=== PATIENT | female | born 2000 | race Caucasian/White ===

== ENCOUNTER 2022-06-19 06:45 | Emergency (ER) | payer OTHER, SELFPAY ==
[2022-06-19 06:47] VITALS: BP 122/84; PULSE 82; RESP 16; TEMP 36.9; O2SAT 98
--- NOTE | 2022-06-19 06:58 | ED.PSYCH ---
HPI - Psych <Sohan Balderas DO - Last Filed: 06/21/22 08:01> General Chief Complaint: Psychiatric Symptoms Stated Complaint: Suicidal ideations Time Seen by Provider: 06/19/22 06:52 Source: EMS Mode of arrival: EMS History of Present Illness HPI Narrative: 21-year-old female nonsmoker with history of anxiety and depression presents by EMS with suicidal ideation. She is very tearful and upset and a poor historian but states that she thinks she has figured it out and she wanted to kill herself but does not think she wants to anymore. She is tearful and staring off stating that she broke all the rules but is unclear what this means. She states that she lives in [facility] but left there because it was raining too much. She states she has friends and family here but does not live with them. She states that both of her parents killed themselves during her and at the same time were sending her messages to kill herself. She states she is not been eating or drinking. She denies any homicidal ideation. She denies any recent trauma or injury. She denies any use of alcohol or street drugs. Related Data Previous Rx's Medication Instructions Recorded sertraline 150 mg capsule 150 mg PO DAILY #90 caps 05/12/22 Allergies Allergy/AdvReac Type Severity Reaction Status Date / Time No Known Drug Allergies Allergy Unverified 05/12/22 14:42 Review of Systems <DO Debra Mcbride Last Filed: 06/21/22 08:01> Review of Systems Narrative: GENERAL: Denies chills, fatigue, malaise, fever, sweats. HEENT: Denies sinus pain, ear pain, sore throat, difficulty swallowing, dizziness. RESPIRATORY: Denies dyspnea, cough, wheezing, hemoptysis, sputum. CARDIOVASCULAR: Denies chest pain, palpitations, orthopnea, edema, GASTROINTESTINAL: Denies nausea, vomiting, abdominal pain, diarrhea, constipation, melena. : Denies dysuria, frequency, incontinence, hematuria, urinary retention. MUSCULOSKELETAL: denies weakness, joint pain, or bony pain SKIN: Denies rash, skin lesions, or other NEUROLOGIC: Denies weakness, headache, numbness, change in speech, confusion, seizures, incoordination. PSYCHIATRIC: See HPI 12 point review of systems is negative except for those stated above Patient History <Sohan Balderas DO - Last Filed: 06/21/22 08:01> Medical History Anxiety (~2005) Depression (~2010) Social History Smoking Status: Never smoker Smoking Status: Never smoker Exam <Sohan Balderas DO - Last Filed: 06/21/22 08:01> Narrative Exam Narrative: GENERAL: [21] year old patient appears stated age. Well-developed patient, in obvious distress, tearful, quickly ranging from upset and frantic speaking to calm making eye contact and then quickly stairs off rambling nonsensically HEAD: Atraumatic. Normocephalic. EYES: Pupils equal round and reactive. Extraocular motions intact. No scleral icterus. No injection or drainage. ENT: Nose without bleeding, purulent drainage. Throat without erythema, tonsillar hypertrophy or exudate. Airway patent. NECK: Trachea midline. Non tender CARDIOVASCULAR: Regular rate and rhythm without murmurs, gallops, or rubs. RESPIRATORY: Clear to auscultation. Breath sounds equal bilaterally. No wheezes, rales, or rhonchi. GASTROINTESTINAL: Abdomen soft, non-tender, nondistended. EXTREMITIES: No edema or joint tenderness. BACK: Nontender without deformity or crepitance. No flank tenderness. NEURO: AOx3. Cranial nerves 2-12 grossly intact SKIN: No rash or erythema of visible areas Initial Vital Signs Initial Vital Signs: Vital Signs Temperature 98.4 F 06/19/22 06:47 Pulse Rate 82 06/19/22 06:47 Respiratory Rate 16 06/19/22 06:47 Blood Pressure 122/84 06/19/22 06:47 Pulse Oximetry 98 06/19/22 06:47 Oxygen Delivery Method 06/19/22 06:47 <Katie Hoskins DO - Last Filed: 06/22/22 00:36> Initial Vital Signs Initial Vital Signs: Vital Signs Temperature 98.4 F 06/19/22 06:47 Pulse Rate 82 06/19/22 06:47 Respiratory Rate 16 06/19/22 06:47 Blood Pressure 122/84 06/19/22 06:47 Pulse Oximetry 98 06/19/22 06:47 Oxygen Delivery Method 06/19/22 06:47 Course <Sohan Balderas DO - Last Filed: 06/21/22 08:01> Orders Ordered: Discontinued Medications Olanzapine (Olanzapine Odt 10 Mg Tab) 10 mg PO NOW ONE Stop: 06/19/22 08:53 Last Admin: 06/19/22 09:02 Dose: 10 mg Documented By: YONAS Potassium Chloride (Potassium Chloride 20 Meq/15 Ml Udc) 40 meq PO NOW ONE Stop: 06/19/22 07:47 Last Admin: 06/19/22 08:43 Dose: 40 meq Documented By: OYNAS Potassium Chloride (Potassium Chloride 20 Meq Tab) 40 meq PO NOW ONE Stop: 06/19/22 07:47 Last Admin: 06/19/22 08:43 Dose: 40 meq Documented By: YONAS Reevaluation(s) Reevaluation #1: patient tearful and restless and attempting to elope, she is able to get out of the room briefly but is escorted back willingly by security. Vital Signs Vital signs: Vital Signs - 8 hr 06/20/22 14:00 Pulse Rate 77 Respiratory Rate 17 Blood Pressure [97/64] 101/53 L Pulse Oximetry 99 Oxygen Delivery Method Room Air <Katie Hoskins DO - Last Filed: 06/22/22 00:36> Orders Ordered: Discontinued Medications Olanzapine (Olanzapine Odt 10 Mg Tab) 10 mg PO NOW ONE Stop: 06/19/22 08:53 Last Admin: 06/19/22 09:02 Dose: 10 mg Documented By: YONAS Potassium Chloride (Potassium Chloride 20 Meq/15 Ml Udc) 40 meq PO NOW ONE Stop: 06/19/22 07:47 Last Admin: 06/19/22 08:43 Dose: 40 meq Documented By: YONAS Potassium Chloride (Potassium Chloride 20 Meq Tab) 40 meq PO NOW ONE Stop: 06/19/22 07:47 Last Admin: 06/19/22 08:43 Dose: 40 meq Documented By: YONAS Vital Signs Vital signs: Vital Signs - 8 hr 06/20/22 14:00 Pulse Rate 77 Respiratory Rate 17 Blood Pressure [97/64] 101/53 L Pulse Oximetry 99 Oxygen Delivery Method Room Air MDM - Psych <Sohan Balderas DO - Last Filed: 06/21/22 08:01> Lab Data Result diagrams: 06/19/22 07:05 06/19/22 07:05 Labs: Lab Results 06/19/22 06/19/22 06/19/22 Range/Units 07:05 07:05 07:29 WBC 7.8 (4.5-11.0) X10^3/uL RBC 4.32 (4.0-5.2) X10^6/uL Hgb 11.7 L (12.0-16.0) g/dL Hct 35.4 L (36-46) % MCV 81.9 (80-100) fL MCH 27.2 (26-34) PG MCHC 33.2 (30-36) % RDW 15.3 H (11.6-14.8) % Plt Count 229 (150-400) X10^3/uL Neut % (Auto) 72.5 (50-75) % Lymph % (Auto) 20.7 L (25-40) % Clark % (Auto) 6.3 (3-14) % Eos % (Auto) 0.1 L (2-4) % Baso % (Auto) 0.4 (0-2) % Neut # (Auto) 5600 (2023-2904) /uL Lymph # (Auto) 1600 (7498-9312) /uL Clark # (Auto) 500 (0-900) /uL Eos # (Auto) 0 (0-450) /uL Baso # (Auto) 0 (0-100) /uL Sodium 141 (137-145) mmol/L Potassium 3.2 L (3.4-5.1) mmol/L Chloride 107 (98-107) mmol/L Carbon Dioxide 20 L (22-32) mmol/L BUN 10 (7-17) mg/dL Creatinine 0.77 (0.52-1.04) mg/dL Estimated GFR > 60 (>60) mL/min BUN/Creatinine Ratio 13.0 (6-22) Glucose 115 H (70-100) mg/dL Calcium 8.9 (8.4-10.2) mg/dL Total Bilirubin 0.4 (0.2-1.3) mg/dL AST 32 (14-36) IU/L ALT 20 (<35) IU/L Alkaline Phosphatase 59 (38-126) U/L Total Protein 8.4 H (6.3-8.2) g/dL Albumin 4.7 (3.5-5.0) g/dL Globulin 3.7 (1.7-4.1) g/dL Albumin/Globulin Ratio 1.3 (1.0-2.8) Urine RBC (0-5/HPF) Urine WBC (0-5/HPF) Ur Squamous Epith Cells (0-5/HPF) Urine Bacteria (None) Salicylates < 1.0 (<20) mg/dL U Opiates 300ng/mL cut (Negative) Ur Oxycodone Screen (Negative) Urine Methadone Screen (Negative) Acetaminophen < 10 (10-30) ug/mL Ur Barbiturates Screen (Negative) U Tricyclic Antidepress (Negative) Ur Phencyclidine Scrn (Negative) Ur Amphetamines Screen (Negative) U Methamphetamines Scrn (Negative) Ur MDMA Scrn (Ecstasy) (Negative) U Benzodiazepines Scrn (Negative) Urine Cocaine Screen (Negative) U Marijuana (THC) Screen (Negative) Ethyl Alcohol < 10 ( - 10) mg/dL SARS-CoV-2 (PCR) Negative (Negative) 06/19/22 06/19/22 Range/Units 09:40 09:40 WBC (4.5-11.0) X10^3/uL RBC (4.0-5.2) X10^6/uL Hgb (12.0-16.0) g/dL Hct (36-46) % MCV (80-100) fL MCH (26-34) PG MCHC (30-36) % RDW (11.6-14.8) % Plt Count (150-400) X10^3/uL Neut % (Auto) (50-75) % Lymph % (Auto) (25-40) % Clark % (Auto) (3-14) % Eos % (Auto) (2-4) % Baso % (Auto) (0-2) % Neut # (Auto) (9770-2697) /uL Lymph # (Auto) (3017-6349) /uL Clark # (Auto) (0-900) /uL Eos # (Auto) (0-450) /uL Baso # (Auto) (0-100) /uL Sodium (137-145) mmol/L Potassium (3.4-5.1) mmol/L Chloride (98-107) mmol/L Carbon Dioxide (22-32) mmol/L BUN (7-17) mg/dL Creatinine (0.52-1.04) mg/dL Estimated GFR (>60) mL/min BUN/Creatinine Ratio (6-22) Glucose (70-100) mg/dL Calcium (8.4-10.2) mg/dL Total Bilirubin (0.2-1.3) mg/dL AST (14-36) IU/L ALT (<35) IU/L Alkaline Phosphatase (38-126) U/L Total Protein (6.3-8.2) g/dL Albumin (3.5-5.0) g/dL Globulin (1.7-4.1) g/dL Albumin/Globulin Ratio (1.0-2.8) Urine RBC 0-1/hpf (0-5/HPF) Urine WBC 0-1/hpf (0-5/HPF) Ur Squamous Epith Cells 1-5 /hpf (0-5/HPF) Urine Bacteria Few (2-10) H (None) Salicylates (<20) mg/dL U Opiates 300ng/mL cut Negative (Negative) Ur Oxycodone Screen Negative (Negative) Urine Methadone Screen Negative (Negative) Acetaminophen (10-30) ug/mL Ur Barbiturates Screen Negative (Negative) U Tricyclic Antidepress Negative (Negative) Ur Phencyclidine Scrn Negative (Negative) Ur Amphetamines Screen Negative (Negative) U Methamphetamines Scrn Negative (Negative) Ur MDMA Scrn (Ecstasy) Negative (Negative) U Benzodiazepines Scrn Negative (Negative) Urine Cocaine Screen Negative (Negative) U Marijuana (THC) Screen Positive H (Negative) Ethyl Alcohol ( - 10) mg/dL SARS-CoV-2 (PCR) (Negative) Point of Care Testing Test Results Negative Urine Dip Bedside Urine Glucose Negative Bedside Urine Bilirubin - Negative Bedside Urine Ketone - Negative Urine Specific [place] 1.010 Bedside Urine Occult Blood - Negative Bedside Urine pH 6.5 Bedside Urine Protein - Negative Bedside Urine Urobilinogen - Negative Bedside Urine Nitrite - Negative Bedside Urine Leukocytes - Negative Esterase Imaging Data CT scan - head: Radiologist's Impression: [address] [address] [address] Scan Report Signed Patient: Tiff Shah MR#: [id number] : 2000 Acct:[id number] Age/Sex: 21 / F Date of Service: 06/19/22 Loc: ED Accession Number: [id number] ?? Procedure: CT head/brain wo con Ordering Provider: Sohan Balderas D.O. PROCEDURE:? CT HEAD/BRAIN WO CON ? INDICATIONS:? mental status change ? TECHNIQUE:? Noncontrast 4.5 mm thick angled axial sections acquired from the foramen magnum to the vertex, with coronal and sagittal reformats.? For radiation dose reduction, the following was used:? automated exposure control, adjustment of mA and/or kV according to patient size.? ? COMPARISON:? None. ? FINDINGS:? Image quality:? Fair ? CSF spaces:? Basal cisterns are patent.? No extra-axial fluid collections.? Ventricles are normal in size and shape.? ? Brain:? No midline shift.? No intracranial masses or hemorrhage.? Maxwell-white matter interface is normal.? ? Skull and face:? Calvarium and visualized facial bones are intact, without suspicious lesions.? ? Sinuses:? Visualized sinuses and mastoids are clear.? ? IMPRESSION:? Image quality is fair. ? No acute intracranial abnormality. ? ? Dictated by: Mesfin Regalado M.D. on 06/19/2022 at 11:22 ? ? Approved by: Mesfin Regalado M.D. on 06/19/2022 at 11:23 ? MDM Narrative Medical decision making narrative: Patient is clearly gravely disabled, she has no capacity to make her own decisions and is at significant risk for rapid deterioration is a risk to herself and others. She will require hospitalization for ongoing evaluation, treatment and stabilization of her condition <Katie Hoskins, DO - Last Filed: 06/22/22 00:36> Lab Data Labs: Lab Results 06/19/22 06/19/22 06/19/22 Range/Units 07:05 07:05 07:29 WBC 7.8 (4.5-11.0) X10^3/uL RBC 4.32 (4.0-5.2) X10^6/uL Hgb 11.7 L (12.0-16.0) g/dL Hct 35.4 L (36-46) % MCV 81.9 (80-100) fL MCH 27.2 (26-34) PG MCHC 33.2 (30-36) % RDW 15.3 H (11.6-14.8) % Plt Count 229 (150-400) X10^3/uL Neut % (Auto) 72.5 (50-75) % Lymph % (Auto) 20.7 L (25-40) % Clark % (Auto) 6.3 (3-14) % Eos % (Auto) 0.1 L (2-4) % Baso % (Auto) 0.4 (0-2) % Neut # (Auto) 5600 (1236-1041) /uL Lymph # (Auto) 1600 (7650-9057) /uL Clark # (Auto) 500 (0-900) /uL Eos # (Auto) 0 (0-450) /uL Baso # (Auto) 0 (0-100) /uL Sodium 141 (137-145) mmol/L Potassium 3.2 L (3.4-5.1) mmol/L Chloride 107 (98-107) mmol/L Carbon Dioxide 20 L (22-32) mmol/L BUN 10 (7-17) mg/dL Creatinine 0.77 (0.52-1.04) mg/dL Estimated GFR > 60 (>60) mL/min BUN/Creatinine Ratio 13.0 (6-22) Glucose 115 H (70-100) mg/dL Calcium 8.9 (8.4-10.2) mg/dL Total Bilirubin 0.4 (0.2-1.3) mg/dL AST 32 (14-36) IU/L ALT 20 (<35) IU/L Alkaline Phosphatase 59 (38-126) U/L Total Protein 8.4 H (6.3-8.2) g/dL Albumin 4.7 (3.5-5.0) g/dL Globulin 3.7 (1.7-4.1) g/dL Albumin/Globulin Ratio 1.3 (1.0-2.8) Urine RBC (0-5/HPF) Urine WBC (0-5/HPF) Ur Squamous Epith Cells (0-5/HPF) Urine Bacteria (None) Salicylates < 1.0 (<20) mg/dL U Opiates 300ng/mL cut (Negative) Ur Oxycodone Screen (Negative) Urine Methadone Screen (Negative) Acetaminophen < 10 (10-30) ug/mL Ur Barbiturates Screen (Negative) U Tricyclic Antidepress (Negative) Ur Phencyclidine Scrn (Negative) Ur Amphetamines Screen (Negative) U Methamphetamines Scrn (Negative) Ur MDMA Scrn (Ecstasy) (Negative) U Benzodiazepines Scrn (Negative) Urine Cocaine Screen (Negative) U Marijuana (THC) Screen (Negative) Ethyl Alcohol < 10 ( - 10) mg/dL SARS-CoV-2 (PCR) Negative (Negative) 06/19/22 06/19/22 Range/Units 09:40 09:40 WBC (4.5-11.0) X10^3/uL RBC (4.0-5.2) X10^6/uL Hgb (12.0-16.0) g/dL Hct (36-46) % MCV (80-100) fL MCH (26-34) PG MCHC (30-36) % RDW (11.6-14.8) % Plt Count (150-400) X10^3/uL Neut % (Auto) (50-75) % Lymph % (Auto) (25-40) % Clark % (Auto) (3-14) % Eos % (Auto) (2-4) % Baso % (Auto) (0-2) % Neut # (Auto) (9599-6549) /uL Lymph # (Auto) (2401-2333) /uL Clark # (Auto) (0-900) /uL Eos # (Auto) (0-450) /uL Baso # (Auto) (0-100) /uL Sodium (137-145) mmol/L Potassium (3.4-5.1) mmol/L Chloride (98-107) mmol/L Carbon Dioxide (22-32) mmol/L BUN (7-17) mg/dL Creatinine (0.52-1.04) mg/dL Estimated GFR (>60) mL/min BUN/Creatinine Ratio (6-22) Glucose (70-100) mg/dL Calcium (8.4-10.2) mg/dL Total Bilirubin (0.2-1.3) mg/dL AST (14-36) IU/L ALT (<35) IU/L Alkaline Phosphatase (38-126) U/L Total Protein (6.3-8.2) g/dL Albumin (3.5-5.0) g/dL Globulin (1.7-4.1) g/dL Albumin/Globulin Ratio (1.0-2.8) Urine RBC 0-1/hpf (0-5/HPF) Urine WBC 0-1/hpf (0-5/HPF) Ur Squamous Epith Cells 1-5 /hpf (0-5/HPF) Urine Bacteria Few (2-10) H (None) Salicylates (<20) mg/dL U Opiates 300ng/mL cut Negative (Negative) Ur Oxycodone Screen Negative (Negative) Urine Methadone Screen Negative (Negative) Acetaminophen (10-30) ug/mL Ur Barbiturates Screen Negative (Negative) U Tricyclic Antidepress Negative (Negative) Ur Phencyclidine Scrn Negative (Negative) Ur Amphetamines Screen Negative (Negative) U Methamphetamines Scrn Negative (Negative) Ur MDMA Scrn (Ecstasy) Negative (Negative) U Benzodiazepines Scrn Negative (Negative) Urine Cocaine Screen Negative (Negative) U Marijuana (THC) Screen Positive H (Negative) Ethyl Alcohol ( - 10) mg/dL SARS-CoV-2 (PCR) (Negative) Point of Care Testing Test Results Negative Urine Dip Bedside Urine Glucose Negative Bedside Urine Bilirubin - Negative Bedside Urine Ketone - Negative Urine Specific [place] 1.010 Bedside Urine Occult Blood - Negative Bedside Urine pH 6.5 Bedside Urine Protein - Negative Bedside Urine Urobilinogen - Negative Bedside Urine Nitrite - Negative Bedside Urine Leukocytes - Negative Esterase MDM Narrative Medical decision making narrative: Patient is clearly gravely disabled, she has no capacity to make her own decisions and is at significant risk for rapid deterioration is a risk to herself and others. She will require hospitalization for ongoing evaluation, treatment and stabilization of her condition Patient signed out to me by Dr. Balderas, in voluntarily placed at [facility], accepting dr. Campos. Transport coming at 8:00 a.m. in the morning. No complications overnight. Patient signed out to Dr. Pandya Restraint [id number] <Sohan Balderas, - Last Filed: 06/21/22 08:01> Restraint Egie-he-Zawf Evaluation Dban-kd-Djus #1: Date: 06/19/22 Time: 08:20 Patient Appearance: Well Groomed Level of Consciousness: Alert, Follows Commands and Restless Speech Pattern: Animated, Clear and Spontaneous Speech Mood Description: Anxious, Fearful and Suspicious Ability to Follow Directions: Good Hallucination Type: None Thought Process: Disorganized and Flight of ideas Respirations: Normal respiratory rate Cardiac: Regular Rate Circulation: Moves all extremities Behavior necessitating restraint: Paranoid/Delusional and Suicidal Reaction to Intervention: Awake, Resting Quietly Additional Comments: patient has responded well to having sitter at the door. She is receptive. Answering questions Discharge Plan Departure Patient Disposition: Xfer Psychiatric Hosp Clinical Impression: Acute psychosis, Terese Referrals: Ibrahima Alonzo DO [Primary Care Provider] -
--- NOTE | 2022-06-19 06:59 | PC.NURSE ---
SEATING AND MOBILITY TECHNOLOGIST note: as I was putting on patient's name band on and I asked if she needed anything else. Patient asked in a water meter mechanic tone can you kill me? I said Um, no we don't do that here. JIMY Dobbs was there when it happened.
[2022-06-19 07:14] LABS: Add Manual Diff / Slide Review NO; Basophils Absolute Auto 0 /uL (0-100); Basophils Percent Auto 0.4 % (0-2); Eosinophils Absolute Auto 0 /uL (0-450); Eosinophils Percent Auto 0.1 % (2-4); Hematocrit 35.4 % (36-46); Hemoglobin 11.7 g/dL (12.0-16.0); Lymphocytes Absolute Auto 1600 /uL (1100-4500); Lymphocytes Percent Auto 20.7 % (25-40); Mean Corpuscular HGB Conc 33.2 % (30-36); Mean Corpuscular Hemoglobin 27.2 PG (26-34); Mean Corpuscular Volume 81.9 fL (80-100); Monocytes Absolute Auto 500 /uL (0-900); Monocytes Percent Auto 6.3 % (3-14); Neutrophils Absolute Auto 5600 /uL (1500-7000); Neutrophils Percent Auto 72.5 % (50-75); Platelet Count 229 X10^3/uL (150-400); Red Blood Cell Count 4.32 X10^6/uL (4.0-5.2); Red Cell Distribution Width 15.3 % (11.6-14.8); White Blood Cell Count 7.8 X10^3/uL (4.5-11.0)
--- NOTE | 2022-06-19 07:15 | PC.NURSE ---
Report to dayshift RN team - care relinquished at this time
[2022-06-19 07:24] LABS: Acetaminophen < 10 ug/mL (10-30); Alanine Aminotransferase 20 IU/L (<35); Albumin 4.7 g/dL (3.5-5.0); Albumin Globulin Ratio 1.3 (1.0-2.8); Alkaline Phosphatase 59 U/L (38-126); Aspartate Aminotransferase 32 IU/L (14-36); Bilirubin Total 0.4 mg/dL (0.2-1.3); Blood Urea Nitrogen 10 mg/dL (7-17); Calcium 8.9 mg/dL (8.4-10.2); Carbon Dioxide 20 mmol/L (22-32); Chloride 107 mmol/L (98-107); Estimated Glomerular Filt Rate > 60 mL/min (>60); Ethanol (ETOH) < 10 mg/dL; Globulin 3.7 g/dL (1.7-4.1); Glucose 115 mg/dL (70-100); HEMOLYSIS < 15 (0-50); Potassium 3.2 mmol/L (3.4-5.1); Salicylate < 1.0 mg/dL (<20); Sodium 141 mmol/L (137-145); Total Protein 8.4 g/dL (6.3-8.2)
[2022-06-19 07:44] LABS: COVID19 -Nasal RAPID Negative (Negative)
--- NOTE | 2022-06-19 08:01 | PC.NURSE ---
Pt eloped out the ambulance bay automatic doors, in green paper scrubs, hospital security was called to assist with looking for the patient, Danial WINSLOW notified and advised pt is in paper scrubs, no shoes and it's raining/windy outside. Hospital security found pt out in the hospital parking lot. Pt stated I wanted to go for a run and be outdoors. Security is currently observing pt until the sitter arrives.
--- NOTE | 2022-06-19 08:34 | PC.NURSE ---
pt said she was going home and tried walking out.
[2022-06-19] MEDS: POTASSIUM CHLORIDE 20 MEQ TAB 40 MEQ PO (08:43)
[2022-06-19] MEDS: POTASSIUM CHLORIDE 20 MEQ/15 ML UDC 40 MEQ PO (08:43)
--- NOTE | 2022-06-19 08:44 | PC.NURSE ---
Addendum entered by Alexa Miramontes R.N. 06/19/22 08:47: Pt is cooperative. Original Note: Sitter arrived shortly after 0800, pt is receptive to sitter. Medication administered, pt given apple juice, orange juice and water. Breakfast served at 0845. Physician currently at the bedside. Gian renae
[2022-06-19 08:45] VITALS: BP 120/82; PULSE 83; RESP 16; O2SAT 98
--- NOTE | 2022-06-19 08:56 | PC.NURSE ---
rt refused breakfast
[2022-06-19] MEDS: OLANZapine ODT 10 MG TAB PO (09:02)
--- NOTE | 2022-06-19 09:41 | PC.NURSE ---
pt had a bowl movement and urine. I obtained a UA sample 9:42am
[2022-06-19 09:55] LABS: UR Morphine/Opiate cutoff 300 Negative (Negative); Ur Creatinine Normal (Normal); Ur Specific Gravity Normal (Normal); Urine Amphetamines Negative (Negative); Urine Barbiturates Negative (Negative); Urine Benzodiazepines Negative (Negative); Urine Cocaine Negative (Negative); Urine MDMA Negative (Negative); Urine Methadone Negative (Negative); Urine Methamphetamines Negative (Negative); Urine Oxycodone Negative (Negative); Urine Phencyclidine Negative (Negative); Urine Tetrahydrocannabinol Positive (Negative); Urine Tricyclic Antidepressant Negative (Negative); Urine pH Normal (Normal)
[2022-06-19 10:33] LABS: Bacteria Urine Few (2-10); RBC Urine 0-1/HPF (0-5/HPF); Squamous Epithelial Cell Urine 1-5 /HPF (0-5/HPF); WBC Urine 0-1/HPF (0-5/HPF)
--- NOTE | 2022-06-19 11:05 | PC.NURSE ---
pt father came to visit at 11:00am.
--- NOTE | 2022-06-19 11:30 | PC.NURSE ---
pt left side lying
--- NOTE | 2022-06-19 11:52 | DI.CT.S_ITS ---
PROCEDURE: CT HEAD/BRAIN WO CON INDICATIONS: mental status change TECHNIQUE: Noncontrast 4.5 mm thick angled axial sections acquired from the foramen magnum to the vertex, with coronal and sagittal reformats. For radiation dose reduction, the following was used: automated exposure control, adjustment of mA and/or kV according to patient size. COMPARISON: None. FINDINGS: Image quality: Fair CSF spaces: Basal cisterns are patent. No extra-axial fluid collections. Ventricles are normal in size and shape. Brain: No midline shift. No intracranial masses or hemorrhage. Maxwell-white matter interface is normal. Skull and face: Calvarium and visualized facial bones are intact, without suspicious lesions. Sinuses: Visualized sinuses and mastoids are clear. IMPRESSION: Image quality is fair. No acute intracranial abnormality. Dictated by: Mesfin Regalado M.D. on 06/19/2022 at 11:22 Approved by: Mesfin Regalado M.D. on 06/19/2022 at 11:23
--- NOTE | 2022-06-19 12:07 | PC.NURSE ---
pt went for CT scan
--- NOTE | 2022-06-19 12:46 | CM.SWNOTE ---
Addendum entered by Lisa Soriano 06/19/22 13:13: WATER RESOURCE SPECIALIST Note WATER RESOURCE SPECIALIST re-enters room with patient's father and patient acknowledges WATER RESOURCE SPECIALIST and father's presence. Patient presents as tired and states that she is really, really, really good Patient endorses she has not been sleeping or eating much. Patient endorses fear for her safety last night with fear that she was going to harm herself. Patient endorses hx of self harm but does not elaborate. Patient denies SI and HI. Patient endorses that she did not go to work last night and she hit the reset button. Patient states she doesn't know why she didn't go to work. Conversation with father: it is reported that he is patient's only support and patient's mother resides in [place] and they have a very strained relationship with patient. Father is currently completing and JUAN J declaration regarding concern for patient's behaviors. Lisa Soriano, [facility] Original Note: WATER RESOURCE SPECIALIST Note Patient is 21 y/o female who presents to ED via EMS after father called 911 due to concern for patient's harm to self and manic behavior. WATER RESOURCE SPECIALIST attempts to enter room to meet with patient and patient is non responsive after several attempts to wake her. Per EMR patient was prescribed Zyprexa and Potassium Chloride this morning. Per RN, upon RN's first meeting patient. Patient presented as very tearful stating that her best friend . Patient was inconsolably crying and then 30 seconds later patient proceeded to present euthymic/flat and talking about the next subject. Based on this description, patient presents with labile behavior. RN states that patient stated she feels great and fantastic and uses big language. It was reported that earlier this morning patient attempted to elope ED but was redirected and returned to ED room. It was reported that within an hour after that elopement attempt patient left ED via ambulance bay. It was reported that it was raining and patient was in paper scrubs. Patient was retrieved by hospital security and [employer] and then given medication. Since medications have been prescribed patient has presented as drowsy and quiet. WATER RESOURCE SPECIALIST meets with patient's father. Father shows WATER RESOURCE SPECIALIST stream of text messages from patient from the middle of the night. Patient texts that she thought her father , patient is very repetitive with several messages per minute. Patient endorses via text You know I'm . Father reports that patient has hx of Depression and Anxiety. Father reports that patient has hx of Partial hospitalizations at [facility] in [place] for 6 weeks in September 2021 and then in December 2021 patient went to [facility] in [place] for 6-8 weeks with rx for 800mg of Seroquil and 150 mg rx for Sertraline. Father reports that he was not able to inquire information regarding patient's stays due to HIPPA. Father reports that patient tapered off of Seroquil and states that she plans to stop taking Sertraline. 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 It was reported that patient worked last night, and prior to that patient had a good day with father and there were no reported concerns. It is reported that patient ended outpatient therapy and no longer has a psychiatrist as of December 2021. Patient has PCP Dr. holland who is currently prescribing patient's sertroline. Father endorses concern for a psychotic break and this new manic behavior. WATER RESOURCE SPECIALIST reviews patient with ED provider Dr. Balderas, he endorses that patient is medically clear and there are concerns for patient's grave disability. It is the opinion of this WATER RESOURCE SPECIALIST that patient is appropriate for DCR evaluation for JUAN J placement due to concern for patient's grave disability and hx of elopement. WATER RESOURCE SPECIALIST dispatches DCR. Plan: WATER RESOURCE SPECIALIST to f/u with DCR for POC. ARA Quintero
[2022-06-19 12:55] VITALS: BP 97/64; PULSE 77; RESP 16; O2SAT 99
--- NOTE | 2022-06-19 13:13 | PC.NURSE ---
pt washington odell arrived at 1314 and he is in room with pt.
--- NOTE | 2022-06-19 13:28 | PC.NURSE ---
Pt resting on bed quietly in room, father at the bedside.
--- NOTE | 2022-06-19 13:31 | PC.NURSE ---
pt right side lying
--- NOTE | 2022-06-19 14:32 | PC.NURSE ---
pt up talking remotly on tablet with fathers help
--- NOTE | 2022-06-19 15:00 | PC.NURSE ---
pt right side lying
--- NOTE | 2022-06-19 15:28 | PC.NURSE ---
dad at bedside. Pt is sleeping in bed.
--- NOTE | 2022-06-19 15:30 | PC.NURSE ---
pt is sleeping.
--- NOTE | 2022-06-19 15:33 | PC.NURSE ---
Pt resting with eyes closed, laying on right-side, appears comfortable and in no apparent distress. Father sitting in the recliner adjacent to bed. Sitter at entrance of room.
--- NOTE | 2022-06-19 16:00 | PC.NURSE ---
06/19/2022 1530, 1545, 1600 pt not in restraints or seclusion at anytime, error charting restraint safety check, pt is 1;1 observation with sitter/corporate safety coordinator at the bedside
[2022-06-19 16:53] VITALS: BP 98/54; PULSE 77; RESP 17; TEMP 35.8; O2SAT 100
--- NOTE | 2022-06-19 17:54 | CM.SWNOTE ---
AIRCRAFT MAINTENANCE TECHNICIAN Note DCR Pamela (ph. # [phone]) is assigned and meets with patient via ipad. Pamela reports that patient meets criteria for JUAN J and will search for [facility] beds for patient. At 1750, AIRCRAFT MAINTENANCE TECHNICIAN receives VM from Pamela reporting that she was unable to identify placement for patient but [facility] was reviewing patient just very slow to respond and [facility] reported that they will have beds tomorrow and reviewed patient. AIRCRAFT MAINTENANCE TECHNICIAN to provide this information with DCP AIRCRAFT MAINTENANCE TECHNICIAN who will be covering ED tomorrow. AIRCRAFT MAINTENANCE TECHNICIAN to review this with ED provider and team. Plan: DCR Walk away tonight, ED team and DCP AIRCRAFT MAINTENANCE TECHNICIAN to seek [facility] bed for patient and re-dispatch DCR for [facility] J placement and detainment tomorrow ARA Quintero
--- NOTE | 2022-06-19 18:01 | PC.NURSE ---
pt refused dinner
--- NOTE | 2022-06-19 18:46 | PC.NURSE ---
Pt has spent the majority of the day resting with her eyes closed. Pt has shifted from her left side to right side for comfort. Sitter at the bed side.
--- NOTE | 2022-06-19 19:15 | PC.NURSE ---
Addendum entered by Bob Morris CNA 06/19/22 21:01: @2100 father Joseph returns to room, father was set up with cot in room to sleep tonight. Patient remains asleep/resting, lying on her right side in no apparent distress. Original Note: @1900 this TRANSPORTATION MAINTENANCE SUPERVISOR takes over observation of patient until 0100. Patient resting on stretcher right side lying. Introduced self to father Joseph who sits next to patient.
--- NOTE | 2022-06-19 22:18 | PC.NURSE ---
Addendum entered by Mariano Mixon CNA 06/20/22 06:53: Patient drank all of the venti starbucks and half of the breakfast sandwich, patient then asked for a warm blanket, patient's father left and stated that he was going to look for the patients phone and that he will be back to speak with social work. Addendum entered by Mariano Mixon CNA 06/20/22 06:10: patients father asked if he could bring the patient starbucks, this was cleared with the nurse. Original Note: this textile coating machine operator took over observation of this patient at 2213. patient appeared to be sleeping.
[2022-06-20 05:50] VITALS: BP 95/58; PULSE 61; RESP 15; TEMP 36.2; O2SAT 98
--- NOTE | 2022-06-20 07:12 | PC.NURSE ---
Patient sleeping. Obtained patient care
--- NOTE | 2022-06-20 07:43 | PC.NURSE ---
Addendum entered by Arelis Nava R.N. 06/20/22 07:44: correction dose 150mg. Original Note: Patient took home Sertraline HCL 100MG brought in by her father.
--- NOTE | 2022-06-20 07:56 | PC.NURSE ---
Father at bedside. Updated on plan for finding bed this morning. Patient continues to sleep. Resp even and unlabored.
--- NOTE | 2022-06-20 08:16 | PC.NURSE ---
Patient continues to sleep. Tray set at bedside with Father. Patient ate starbucks breakfast couple hours ago per father. Will keep at bedside if she decides she wants any.
[2022-06-20 10:00] VITALS: BP 101/55; PULSE 63; RESP 16; O2SAT 100
--- NOTE | 2022-06-20 10:53 | PC.NURSE ---
Addendum entered by Sri Lantigua R.N. 06/20/22 15:28: placement attempts/fu calls called [facility]. pt still pending screening by clinicians, unsure when will complete screening as clinicians all work remotely and have high case loads. [phone] [facility] to determine availability. currently no beds available and do not anticipate beds becoming available today [phone] called [facility]. they do not have any available beds. request we check back later today and if we can confirm possible available beds they will screen then. [facility] declines having records sent yet as currently no beds available. [phone] called [facility], no answer, did not leave a message. call back today to try again to have pt screened for placement. [phone] called [facility] [phone] sppke with Elizabeth fax # given [phone] to fax facesheet/covid/chart. reports they have a pending discharge called [facility], no answer, need to call back called [facility] no beds today, recommend calling tomorrow/daily called [facility] no beds today boarding high numbers in own ed for same type of bed placement called [facility] no answer, faxed clinicals to [phone] called [facility], they are currently full and have 25 patients boarding in their facility for same beds called [facility], they are at capacity, may have beds tommorrow, need to call tomorrow and f/u called [facility] no answer, faxed clinicals to [phone] called [facility] no answer, faxed clinicals to [phone] [facility], transferred to [facility] no answer at intake line for consideratoin call [phone] and ask skip hoist operator for [facility] called [facility], left message [phone] Original Note: placement attempts/fu calls called [facility]. pt still pending screening by clinicians, unsure when will complete screening as clinicians all work remotely and have high case loads. [phone] [facility] to determine availability. currently no beds available and do not anticipate beds becoming available today [phone] called [facility]. they do not have any available beds. request we check back later today and if we can confirm possible available beds they will screen then. [facility] declines having records sent yet as currently no beds available. [phone] called [facility], no answer, did not leave a message. call back today to try again to have pt screened for placement. [phone] called [facility] [phone] sppkings with [facility] fax # given [phone] to fax facesheet/covid/chart. reports they have a pending discharge
--- NOTE | 2022-06-20 13:10 | PC.NURSE ---
Pt ate 100% of her grilled cheese sandwich, drank 8oz of juice. Went back to resting with her eyes closed.
--- NOTE | 2022-06-20 13:36 | PC.NURSE ---
patient dad asked if she could have her cell phone. Dr. Balderas okay for patient to have cell phone as long as it does not agitate or make her upset. I talked with patient and dad and both understand. sitter still at bedside.
[2022-06-20 14:00] VITALS: BP 101/53; PULSE 77; RESP 17; O2SAT 99
--- NOTE | 2022-06-20 15:35 | PC.NURSE ---
pt having auditory hallucinations, turning in bed, getting anxious and upset, dad leaving because pt states she is mad at him. dad updated regarding placement seeking and pt status as gravely disabled requiring inpatient psychiatric care
--- NOTE | 2022-06-20 16:07 | PC.NURSE ---
pt never in restraints or seclusion, charting removed. pt is under 1:1 observation with sitter/safety and security manager at bs
--- NOTE | 2022-06-20 16:18 | CM.SWNOTE ---
Addendum entered by Carmen Dockery 06/20/22 16:26: Psychiatry placement pending. ED staff attempting to find bed today. Original Note: HARBOR ENGINEER update: JANE Aburto assigned case today, reports to rate manager that no inpatient psychiatric bed available. This HARBOR ENGINEER instructed ED staff to re-dispatch DCR at 24hrs. In addition, might want to consider psychiatry evaluation for medication management? P: Pending. ADARSH
--- NOTE | 2022-06-20 16:22 | PC.NURSE ---
[facility] susanne called back, questions answered. she is to present case to facility provider ad will call us back with decision and update.
--- NOTE | 2022-06-20 16:42 | PC.NURSE ---
[facility] ian benitez called and pt is accepted to that facility for placement accepting provider dr shonna carballo arrival time of 2200 on 06/20/22 dcr dispatched at 1628 for repeat naldo/detainment now that patient is accepted for placement report phone for [facility] [address] [phone] extension [phone]
--- NOTE | 2022-06-20 16:54 | PC.NURSE ---
message left with dcr gabby mix requesting eta update [phone]
[2022-06-20 18:00] VITALS: BP 104/60; PULSE 88; RESP 16
--- NOTE | 2022-06-20 18:50 | PC.NURSE ---
ALE gautam completed teleassmt on tablet. he is completing paperwork and will call me back. pt reports she is aggreaable to placement. notified father to expect call from ale gautam for updates.
--- NOTE | 2022-06-20 18:56 | PC.NURSE ---
pt father came by for few minutes, pt father did not stay for long due to he [place] ferry [place]. pt was talking to the DCR pt seems to be cooperative very politely and calm while to talking to the DCR. pt now is calm while doing some puzzles and coloring books. offer bathroom, offer fluids. pt is sit up side rails both sides are up.
--- NOTE | 2022-06-20 19:31 | PC.NURSE ---
Pt calm, sitting upright in bed, focused on coloring book, offered fluids and bathroom break.
--- NOTE | 2022-06-20 19:54 | PC.NURSE ---
Pt requested the lights be turned down and the head of her bed laid down flat. She is currently resting with eyes closed. In no apparent distress. Appears comfortable and tucked in under blankets.
--- NOTE | 2022-06-20 20:47 | PC.NURSE ---
LON Kumari conferenced in on the DCR tablet for the delivery of detainment paperwork for this patient. Patient accepted the paperwork. Patient was asked if they had any questions to which she stated no. Copy of detainment paperwork sealed in large manilla envelope for accepting facility.
--- NOTE | 2022-06-20 21:02 | PC.NURSE ---
Patient lying in bed awake, eyes open.
[2022-06-20 22:00] VITALS: BP 102/62; PULSE 74; RESP 14; O2SAT 96
--- NOTE | 2022-06-20 22:03 | PC.NURSE ---
patient laying down, sleeping
--- NOTE | 2022-06-20 22:16 | PC.NURSE ---
patient awake now after checking vitals signs. Pt calm and cooperative, laying in bed. I closed the door to her room more since it is loud in the emergency department, door still cracked.
[2022-06-21 08:45] VITALS: BP 101/60; PULSE 71; RESP 15; O2SAT 98
== END 2022-06-21 08:46 ==
PROVIDERS: Emergency Medicine; Emergency Provider Family Medicine Addiction Medicine; PCP Family Medicine
DX: F23 Brief psychotic disorder (principal); F30.9 Manic episode, unspecified; R45.851 Suicidal ideations
CPT/HCPCS: 70450; 80053; 80305; 80320; 80329; 81003; 81015; 81025; 85025; 87086; 87635; 99285; C9803; G0480

== ENCOUNTER → 2022-06-30 15:28 | Outpatient (CLI) | payer OTHER, SELFPAY ==
[2022-06-30 17:48] LABS: Lithium 0.5 mmol/L (0.6-1.2)
== END ==
PROVIDERS: PCP Family Medicine; Referring Provider Family Medicine; Visit Provider Family Medicine
DX: F23 Brief psychotic disorder (principal); T43.595A Adverse effect of other antipsychotics and neuroleptics, initial encounter
CPT/HCPCS: 36415; 80178

== ENCOUNTER → 2022-12-13 17:01 | Outpatient (CLI) | payer OTHER, SELFPAY ==
[2022-12-13 17:53] LABS: Add Manual Diff / Slide Review NO; Basophils Absolute Auto 0 /uL (0-100); Basophils Percent Auto 0.2 % (0-2); Eosinophils Absolute Auto 0 /uL (0-450); Hematocrit 35.8 % (36-46); Hemoglobin 11.8 g/dL (12.0-16.0); Lymphocytes Absolute Auto 1600 /uL (1100-4500); Lymphocytes Percent Auto 25.1 % (25-40); Mean Corpuscular HGB Conc 32.9 % (30-36); Mean Corpuscular Hemoglobin 26.8 PG (26-34); Mean Corpuscular Volume 81.5 fL (80-100); Monocytes Absolute Auto 400 /uL (0-900); Monocytes Percent Auto 5.6 % (3-14); Neutrophils Absolute Auto 4500 /uL (1500-7000); Neutrophils Percent Auto 69.1 % (50-75); Platelet Count 189 X10^3/uL (150-400); Red Blood Cell Count 4.39 X10^6/uL (4.0-5.2); Red Cell Distribution Width 15.3 % (11.6-14.8); White Blood Cell Count 6.5 X10^3/uL (4.5-11.0)
[2022-12-13 18:25] LABS: Lithium 0.8 mmol/L (0.6-1.2)
[2022-12-13 18:35] LABS: Alanine Aminotransferase 15 IU/L (<35); Albumin 4.6 g/dL (3.5-5.0); Albumin Globulin Ratio 1.6 (1.0-2.8); Alkaline Phosphatase 51 U/L (38-126); Aspartate Aminotransferase 24 IU/L (14-36); BUN Creatinine Ratio 12.8 (6-22); Bilirubin Total 0.4 mg/dL (0.2-1.3); Blood Urea Nitrogen 10 mg/dL (7-17); Calcium 8.8 mg/dL (8.4-10.2); Carbon Dioxide 26 mmol/L (22-32); Chloride 104 mmol/L (98-107); Estimated Glomerular Filt Rate > 60 mL/min (>60); Globulin 2.9 g/dL (1.7-4.1); Glucose 92 mg/dL (70-100); HEMOLYSIS < 15 (0-50); Potassium 3.9 mmol/L (3.4-5.1); Sodium 138 mmol/L (137-145); Total Protein 7.5 g/dL (6.3-8.2)
[2022-12-13 18:59] LABS: TSH w/ Reflex to FT4 1.13 uIU/mL (0.47-4.68)
== END ==
PROVIDERS: PCP Family Medicine; Referring Provider Family Medicine; Visit Provider Family Medicine
DX: F31.9 Bipolar disorder, unspecified (principal)
CPT/HCPCS: 36415; 80053; 80178; 84443; 85025

== ENCOUNTER → 2023-04-04 14:21 | Outpatient (CLI) | payer OTHER, SELFPAY ==
[2023-04-04 14:59] LABS: Add Manual Diff / Slide Review NO; Basophils Absolute Auto 0 /uL (0-100); Basophils Percent Auto 0.4 % (0-2); Eosinophils Absolute Auto 0 /uL (0-450); Eosinophils Percent Auto 0.1 % (2-4); Hematocrit 35.9 % (36-46); Hemoglobin 11.9 g/dL (12.0-16.0); Lymphocytes Absolute Auto 1800 /uL (1100-4500); Mean Corpuscular HGB Conc 33.1 % (30-36); Mean Corpuscular Hemoglobin 27.6 PG (26-34); Mean Corpuscular Volume 83.4 fL (80-100); Monocytes Absolute Auto 300 /uL (0-900); Monocytes Percent Auto 4.9 % (3-14); Neutrophils Absolute Auto 4100 /uL (1500-7000); Neutrophils Percent Auto 65.6 % (50-75); Platelet Count 191 X10^3/uL (150-400); Red Cell Distribution Width 14.7 % (11.6-14.8); White Blood Cell Count 6.2 X10^3/uL (4.5-11.0)
[2023-04-04 15:18] LABS: HEMOLYSIS < 15 (0-50); Iron 124 ug/dL (37-170); Lithium 0.3 mmol/L (0.6-1.2)
[2023-04-04 15:28] LABS: Percent Iron Saturation 30 % (15-50); Total Iron Binding Capacity 417 ug/dL (265-497); Transferrin 314 mg/dL (206-381)
[2023-04-04 16:08] LABS: Vitamin B12 640 pg/mL (239-931)
== END ==
PROVIDERS: PCP Family Medicine; Referring Provider Family Medicine; Visit Provider Family Medicine
DX: F32.89 Other specified depressive episodes (principal); F41.9 Anxiety disorder, unspecified; T56.891A Toxic effect of other metals, accidental (unintentional), initial encounter
CPT/HCPCS: 36415; 80178; 82607; 83540; 83550; 85025

== ENCOUNTER → 2023-07-07 10:51 | Outpatient (CLI) | payer OTHER, SELFPAY ==
[2023-07-07 12:07] LABS: Add Manual Diff / Slide Review NO; Basophils Absolute Auto 0 /uL (0-100); Basophils Percent Auto 0.4 % (0-2); Eosinophils Absolute Auto 0 /uL (0-450); Hematocrit 37.3 % (36-46); Hemoglobin 12.2 g/dL (12.0-16.0); Lymphocytes Absolute Auto 1300 /uL (1100-4500); Lymphocytes Percent Auto 26.5 % (25-40); Mean Corpuscular HGB Conc 32.7 % (30-36); Mean Corpuscular Hemoglobin 27.7 PG (26-34); Mean Corpuscular Volume 84.7 fL (80-100); Monocytes Absolute Auto 200 /uL (0-900); Monocytes Percent Auto 4.6 % (3-14); Neutrophils Absolute Auto 3400 /uL (1500-7000); Neutrophils Percent Auto 68.5 % (50-75); Platelet Count 208 X10^3/uL (150-400)
[2023-07-07 12:36] LABS: Alanine Aminotransferase 14 IU/L (<35); Albumin 4.5 g/dL (3.5-5.0); Albumin Globulin Ratio 1.4 (1.0-2.8); Alkaline Phosphatase 51 U/L (38-126); Aspartate Aminotransferase 25 IU/L (14-36); BUN Creatinine Ratio 10.1 (6-22); Bilirubin Total 0.4 mg/dL (0.2-1.3); Blood Urea Nitrogen 9 mg/dL (7-17); Calcium 9.4 mg/dL (8.4-10.2); Carbon Dioxide 24 mmol/L (22-32); Chloride 105 mmol/L (98-107); Cholesterol 212 mg/dL (140-199); Estimated Glomerular Filt Rate > 60 mL/min (>60); Globulin 3.3 g/dL (1.7-4.1); Glucose 117 mg/dL (70-100); HDL Cholesterol 58 mg/dL (40-60); HEMOLYSIS < 15 (0-50); LDL Cholesterol Calculated 136 mg/dL (<100); Potassium 4.5 mmol/L (3.4-5.1); Sodium 137 mmol/L (137-145); Total Protein 7.8 g/dL (6.3-8.2); Triglycerides 90 mg/dL (35-150)
[2023-07-07 13:00] LABS: TSH w/ Reflex to FT4 1.89 uIU/mL (0.47-4.68)
== END ==
PROVIDERS: PCP Student in an Organized Health Care Education/Training Program; Referring Provider Student in an Organized Health Care Education/Training Program; Visit Provider Student in an Organized Health Care Education/Training Program
DX: Z83.438 Family history of other disorder of lipoprotein metabolism and other lipidemia (principal); Z79.899 Other long term (current) drug therapy
CPT/HCPCS: 36415; 80053; 80061; 84443; 85025

== ENCOUNTER → 2023-08-16 15:11 | Outpatient (CLI) | payer OTHER, SELFPAY | PROVIDERS: PCP Student in an Organized Health Care Education/Training Program; Referring Provider Student in an Organized Health Care Education/Training Program; Visit Provider Student in an Organized Health Care Education/Training Program | DX: Z13.1 Encounter for screening for diabetes mellitus (principal) | CPT/HCPCS: 36415; 83036 ==

== ENCOUNTER → 2023-08-24 14:51 | Outpatient (CLI) | payer OTHER, SELFPAY ==
--- NOTE | 2023-08-24 14:53 | DI.US.S_ITS ---
PROCEDURE: US SOFT TISSUE HEAD AND NECK INDICATIONS: Enlarged lump on Left side of neck TECHNIQUE: Real-time scanning was performed of the neck region of interest, with image documentation. COMPARISON: None. FINDINGS: The palpable lump in the left neck corresponds to the left parotid gland. There is no suspicious mass. The left parotid gland measures 4.9 x 1.4 x 2.4 cm. The contralateral right parotid gland measures 2.3 x 3.8 x 1.0 cm. IMPRESSION: No suspicious finding. Palpable lump in the left neck represents the left parotid gland. No parotid masses identified. Dictated by: Alex Burt M.D. on 08/24/2023 at 17:14 Approved by: Alex Burt M.D. on 08/24/2023 at 17:15
== END ==
PROVIDERS: PCP Student in an Organized Health Care Education/Training Program; Referring Provider Student in an Organized Health Care Education/Training Program; Visit Provider Student in an Organized Health Care Education/Training Program
DX: R22.1 Localized swelling, mass and lump, neck (principal)
CPT/HCPCS: 76536

== ENCOUNTER → 2023-12-27 12:14 | Outpatient (CLI) | payer OTHER, SELFPAY ==
[2023-12-27 13:21] LABS: Lithium 0.2 mmol/L (0.6-1.2)
== END ==
LOC: LAB 12:15
PROVIDERS: PCP Student in an Organized Health Care Education/Training Program; Referring Provider Student in an Organized Health Care Education/Training Program; Visit Provider Student in an Organized Health Care Education/Training Program
DX: Z51.81 Encounter for therapeutic drug level monitoring (principal)
CPT/HCPCS: 36415; 80178

== ENCOUNTER → 2024-03-19 14:38 | Outpatient (CLI) | payer OTHER, SELFPAY ==
[2024-03-19 17:20] LABS: Add Manual Diff / Slide Review NO; Basophils Absolute Auto 0 /uL (0-100); Basophils Percent Auto 0.3 % (0-2); Eosinophils Absolute Auto 0 /uL (0-450); Eosinophils Percent Auto 0.4 % (2-4); Hematocrit 37.1 % (36-46); Hemoglobin 12.1 g/dL (12.0-16.0); Lymphocytes Absolute Auto 1700 /uL (1100-4500); Lymphocytes Percent Auto 28.2 % (25-40); Mean Corpuscular HGB Conc 32.8 % (30-36); Mean Corpuscular Hemoglobin 27.4 PG (26-34); Mean Corpuscular Volume 83.6 fL (80-100); Monocytes Absolute Auto 400 /uL (0-900); Neutrophils Absolute Auto 3900 /uL (1500-7000); Neutrophils Percent Auto 65.1 % (50-75); Platelet Count 194 X10^3/uL (150-400); Red Blood Cell Count 4.43 X10^6/uL (4.0-5.2); White Blood Cell Count 5.9 X10^3/uL (4.5-11.0)
[2024-03-19 17:41] LABS: Hemoglobin A1C% w Est Avg Glu 5.1 % (4.0-6.0)
[2024-03-19 17:48] LABS: Alanine Aminotransferase 11 IU/L (<35); Albumin 4.3 g/dL (3.5-5.0); Albumin Globulin Ratio 1.4 (1.0-2.8); Alkaline Phosphatase 44 U/L (38-126); Aspartate Aminotransferase 25 IU/L (14-36); BUN Creatinine Ratio 13.5 (6-22); Bilirubin Total 0.4 mg/dL (0.2-1.3); Blood Urea Nitrogen 10 mg/dL (7-17); Calcium 9.2 mg/dL (8.4-10.2); Carbon Dioxide 24 mmol/L (22-32); Chloride 108 mmol/L (98-107); Estimated Glomerular Filt Rate > 60 mL/min (>60); Globulin 3.1 g/dL (1.7-4.1); Glucose 74 mg/dL (70-100); HEMOLYSIS < 15 (0-50); Sodium 140 mmol/L (137-145); Total Protein 7.4 g/dL (6.3-8.2)
== END ==
PROVIDERS: PCP Student in an Organized Health Care Education/Training Program; Referring Provider Student in an Organized Health Care Education/Training Program; Visit Provider Student in an Organized Health Care Education/Training Program
DX: E78.5 Hyperlipidemia, unspecified (principal); R73.01 Impaired fasting glucose
CPT/HCPCS: 80053; 83036; 85025

== ENCOUNTER → 2024-05-01 10:55 | Outpatient (CLI) | payer OTHER, SELFPAY ==
--- NOTE | 2024-05-01 10:56 | DI.US.S_ITS ---
PROCEDURE: US PELVIC COMPLETE INDICATIONS: ABNORMAL MENSTRUAL CYCLES TECHNIQUE: Real-time scanning was performed of the pelvic organs, with image documentation. Additional endovaginal scanning was necessary due to incomplete visualization of the adnexal and endometrial structures by transabdominal scanning. COMPARISON: None. FINDINGS: Uterus: Uterus is anteverted and normal in size at 6.0 x 4.1 x 2.1 cm. The myometrium is homogeneous. The endometrium measures 1 mm combined thickness. Minimal fluid in the canal. Ovaries: The right ovary measures 3.2 x 2.3 x 2.0 cm, with a calculated ovarian volume of 7.7 cc. The left ovary measures 2.7 x 1.6 x 1.6 cm, with a calculated ovarian volume of 3.6 cc. The ovaries have a normal sonographic appearance. Less than 12 follicles can be seen in each ovary. No adnexal masses are seen. Other: No pathologic free abdominal or pelvic fluid. IMPRESSION: Unremarkable exam. We strive to produce accurate, complete, and clear reports of imaging services. To assist us in improving patient care, this report was composed using standard report templates and voice recognition software. Therefore, it may contain abnormal punctuation, insertions and/or omissions. Occasional wrong-word or sound-alike substitutions may occur. Though we review the report and make efforts to correct it, we do recommend that the report be read carefully in proper context to recognize any text inaccuracies. Dictated by: Carmelina Blackburn M.D. on 05/01/2024 at 17:01 Approved by: Carmelina Blackburn M.D. on 05/01/2024 at 17:01
== END ==
LOC: US 10:56
PROVIDERS: PCP Student in an Organized Health Care Education/Training Program; Referring Provider Student in an Organized Health Care Education/Training Program; Visit Provider Student in an Organized Health Care Education/Training Program
DX: N92.6 Irregular menstruation, unspecified (principal)
CPT/HCPCS: 76830; 76856

== ENCOUNTER → 2024-05-23 10:53 | Outpatient (CLI) | payer OTHER, SELFPAY ==
[2024-05-23 11:37] LABS: Add Manual Diff / Slide Review NO; Basophils Absolute Auto 0 /uL (0-100); Basophils Percent Auto 0.4 % (0-2); Eosinophils Absolute Auto 0 /uL (0-450); Hematocrit 34.7 % (36-46); Hemoglobin 11.5 g/dL (12.0-16.0); Lymphocytes Absolute Auto 1400 /uL (1100-4500); Lymphocytes Percent Auto 31.3 % (25-40); Mean Corpuscular HGB Conc 33.2 % (30-36); Mean Corpuscular Hemoglobin 27.7 PG (26-34); Mean Corpuscular Volume 83.2 fL (80-100); Monocytes Absolute Auto 300 /uL (0-900); Monocytes Percent Auto 6.7 % (3-14); Neutrophils Absolute Auto 2700 /uL (1500-7000); Neutrophils Percent Auto 61.6 % (50-75); Platelet Count 185 X10^3/uL (150-400); Red Blood Cell Count 4.17 X10^6/uL (4.0-5.2); Red Cell Distribution Width 14.8 % (11.6-14.8); White Blood Cell Count 4.4 X10^3/uL (4.5-11.0)
== END ==
PROVIDERS: PCP Student in an Organized Health Care Education/Training Program; Referring Provider Student in an Organized Health Care Education/Training Program; Visit Provider Student in an Organized Health Care Education/Training Program
DX: R10.9 Unspecified abdominal pain (principal); D70.9 Neutropenia, unspecified
CPT/HCPCS: 36415; 83013; 85025

== ENCOUNTER → 2024-07-11 14:59 | Outpatient (CLI) | payer OTHER, SELFPAY ==
[2024-07-11 15:33] LABS: Add Manual Diff / Slide Review NO; Basophils Absolute Auto 0 /uL (0-100); Basophils Percent Auto 0.4 % (0-2); Eosinophils Absolute Auto 0 /uL (0-450); Hematocrit 35.3 % (36-46); Hemoglobin 11.6 g/dL (12.0-16.0); Lymphocytes Absolute Auto 1400 /uL (1100-4500); Lymphocytes Percent Auto 26.5 % (25-40); Mean Corpuscular HGB Conc 32.9 % (30-36); Mean Corpuscular Hemoglobin 27.7 PG (26-34); Mean Corpuscular Volume 84.4 fL (80-100); Monocytes Absolute Auto 400 /uL (0-900); Monocytes Percent Auto 7.7 % (3-14); Neutrophils Absolute Auto 3300 /uL (1500-7000); Neutrophils Percent Auto 65.4 % (50-75); Platelet Count 192 X10^3/uL (150-400); Red Blood Cell Count 4.19 X10^6/uL (4.0-5.2); Red Cell Distribution Width 15.3 % (11.6-14.8); White Blood Cell Count 5.1 X10^3/uL (4.5-11.0)
[2024-07-11 15:50] LABS: HEMOLYSIS < 15 (0-50); Iron 43 ug/dL (37-170)
[2024-07-11 16:02] LABS: Percent Iron Saturation 12 % (15-50); Total Iron Binding Capacity 371 ug/dL (265-497); Transferrin 330 mg/dL (206-381)
[2024-07-11 16:26] LABS: Ferritin 7 ng/mL (6-137)
[2024-07-11 16:57] LABS: Folate 10.3 ng/mL (2.76-20.0); Vitamin B12 521 pg/mL (239-931)
== END ==
PROVIDERS: PCP Student in an Organized Health Care Education/Training Program; Referring Provider Student in an Organized Health Care Education/Training Program; Visit Provider Student in an Organized Health Care Education/Training Program
DX: D64.9 Anemia, unspecified (principal); Z68.1 Body mass index [BMI] 19.9 or less, adult; R53.83 Other fatigue; F31.2 Bipolar disorder, current episode manic severe with psychotic features
CPT/HCPCS: 36415; 82607; 82728; 82746; 83540; 83550; 85025